=== PATIENT | female | born 1965 | race Caucasian/White ===

== ENCOUNTER 2017-03-29 07:30 | Emergency (ER) | payer OTHER ==
[2017-03-29 07:53] VITALS: BP 155/90
--- NOTE | 2017-03-29 08:11 | EDM.PDOC ---
ED HPI GENERAL MEDICAL PROBLEM - General Chief Complaint: Lower Extremity Injury/Pain Stated Complaint: RT HEEL PAIN Time Seen by Provider: 03/29/17 07:52 Source of Information: Reports: Patient History Limitations: Reports: No Limitations - History of Present Illness INITIAL COMMENTS - FREE TEXT/NARRATIVE: The patient presents with right heal pain. This started Thursday morning when she was getting out of bed. When she went to bed Thursday night, everything was fine. She had no pain and she did not do anything to strenuous. She did not walk more and she was not on her feet more then usual. She did not injure her foot or ankle in any way. She says she has had pain in her heal at times but never this bad. Onset: Sudden Duration: Day(s): (Yesterday) Location: Reports: Lower Extremity, Right (Heal) Quality: Reports: Sharp Severity: Moderate Improves with: Reports: Other (Staying off her feet) Worsens with: Reports: Other (Standing or walking) Associated Symptoms: Reports: No Other Symptoms Right Feet Pain Score (Numeric/FACES): 3 - Related Data Allergies Allergy/AdvReac Type Severity Reaction Status Date / Time No Known Allergies Allergy Verified 03/29/17 07:49 Home Meds: Home Meds Albuterol [Ventolin HFA] 2 puff INH Q4H PRN 07/25/13 [History] FLUoxetine [PROzac] 10 mg PO DAILY 07/25/13 [History] Hydrochlorothiazide 12.5 mg PO DAILY 07/26/13 [History] Multivitamin [Multivitamins] 1 each PO DAILY 07/26/13 [History] Budesonide/Formoterol Fumarate [Symbicort 80-4.5 Mcg Inhaler] 2 puff INH BID [History] Naproxen [Naprosyn] 500 mg PO Q12HR PRN #30 tab 03/29/17 [Rx] Past Medical History Cardiovascular History: Reports: Hypertension Respiratory History: Reports: Asthma, Sleep Apnea Social & Family History - Tobacco Use Smoking Status *Q: Never Smoker - Alcohol Use Days Per Week of Alcohol Use: 2 Number of Drinks Per Day: 2 Total Drinks Per Week: 4 - Recreational Drug Use Recreational Drug Use: No Review of Systems - Review of Systems Review Of Systems: See Below Constitutional: Reports: No Symptoms Eyes: Reports: No Symptoms Ears: Reports: No Symptoms Nose: Reports: No Symptoms Mouth/Throat: Reports: No Symptoms Respiratory: Reports: No Symptoms Cardiovascular: Reports: No Symptoms GI/Abdominal: Reports: No Symptoms Genitourinary: Reports: No Symptoms Musculoskeletal: Reports: Foot Pain (Right) ED EXAM, GENERAL - Physical Exam Exam: See Below Exam Limited By: No Limitations General Appearance: Alert, No Apparent Distress Ears: Normal External Exam Nose: Normal Inspection Head: Atraumatic, Normocephalic Neck: Normal Inspection Respiratory/Chest: No Respiratory Distress Extremities: Other (Pain upon palpation to the right heal. Good sensation and pulses distally.) Course - Vital Signs Last Recorded V/S: Last Vital Signs Temp 98.4 F 03/29/17 07:51 Pulse 70 03/29/17 07:51 Resp 18 03/29/17 07:51 BP 155/90 H 03/29/17 07:51 Pulse Ox 96 03/29/17 07:51 - Re-Assessments/Exams Free Text/Narrative Re-Assessment/Exam: 03/29/17 08:10 The patient has tensor fasciatis. I will have her get heal cups and stretch and I will give her a prescription for naprosyn. Departure - Departure Time of Disposition: 08:15 Disposition: Home, Self-Care 01 Condition: Good Clinical Impression: Plantar fasciitis of right foot - Discharge Information Prescriptions: Naproxen [Naprosyn] 500 mg PO Q12HR PRN #30 tab PRN Reason: Pain Referrals: Michelle Mayo MD [Primary Care Provider] - Dheeraj Moss II, DPM [Physician] - 1 Week Additional Instructions: Take the naprosyn 2 times per day for a week. Stretch your heal before you get out or bed and right when you get out. Run your heal over a can of soup when you are sitting. Buy some heal cups or similar device for your shows for the planter fascitis. Follow up with Dr Moss next week if you are not better. Use the crutches as needed.
== END 2017-03-29 08:35 | disposition home or self-care (01) ==
LOC: JD.ED 07:30
DX: M72.2 Plantar fascial fibromatosis (principal); I10 Essential (primary) hypertension; J45.909 Unspecified asthma, uncomplicated
CPT/HCPCS: 99283

== ENCOUNTER 2018-04-22 14:57 | Emergency (ER) | payer OTHER ==
[2018-04-22 15:13] VITALS: BP 156/88
[2018-04-22] MEDS ORDERED: Acetaminophen/HYDROcodone 325-5 MG Tab PO ONE (15:24)
--- NOTE | 2018-04-22 15:52 | EDM.PDOC ---
ED HPI GENERAL MEDICAL PROBLEM - General Chief Complaint: Lower Extremity Injury/Pain Stated Complaint: LT LEG INJURY Time Seen by Provider: 04/22/18 15:11 Source of Information: Reports: Patient, RN Notes Reviewed - History of Present Illness INITIAL COMMENTS - FREE TEXT/NARRATIVE: 53-year-old female slipped on the ice a short time ago. She states her right foot went out on her and in the process of falling twisted her left ankle. She has severe pain, especially the outer aspect left ankle. She states she "could not bear weight". No other pain or injury from the fall. Left Ankle Pain Score (Numeric/FACES): 9 - Related Data Allergies Allergy/AdvReac Type Severity Reaction Status Date / Time No Known Allergies Allergy Verified 04/22/18 15:13 Home Meds: Home Meds Albuterol [Ventolin HFA] 2 puff INH Q4H PRN 07/25/13 [History] FLUoxetine [PROzac] 10 mg PO DAILY 07/25/13 [History] Multivitamin [Multivitamins] 1 each PO DAILY 07/26/13 [History] hydroCHLOROthiazide [Hydrochlorothiazide] 12.5 mg PO DAILY 07/26/13 [History] Budesonide/Formoterol Fumarate [Symbicort 80-4.5 Mcg Inhaler] 2 puff INH BID [History] Naproxen [Naprosyn] 500 mg PO Q12HR PRN #30 tab 03/29/17 [Rx] Hydrocodone/Acetaminophen [Hockley 5-325 Tablet] 1 each PO Q6HR PRN #20 tablet 10/01 [Rx] Past Medical History Cardiovascular History: Reports: Hypertension Respiratory History: Reports: Asthma, Sleep Apnea Social & Family History - Tobacco Use Smoking Status *Q: Never Smoker - Caffeine Use Caffeine Use: Reports: Tea - Recreational Drug Use Recreational Drug Use: No Review of Systems - Review of Systems Review Of Systems: See Below Constitutional: Reports: No Symptoms Eyes: Reports: No Symptoms Ears: Reports: No Symptoms Nose: Reports: No Symptoms Mouth/Throat: Reports: No Symptoms Respiratory: Denies: Shortness of Breath Cardiovascular: Denies: Chest Pain GI/Abdominal: Denies: Abdominal Pain, Nausea, Vomiting Musculoskeletal: Reports: Joint Pain (Left ankle). Denies: Neck Pain Skin: Reports: No Symptoms Neurological: Reports: No Symptoms ED EXAM, GENERAL - Physical Exam Exam: See Below General Appearance: Alert, Mild Distress Head: Atraumatic Neck: Supple Respiratory/Chest: No Respiratory Distress Extremities: Joint Swelling (There is swelling of the lateral aspects left ankle , moderate diffuse tenderness lateral left ankle minimal tenderness medial ankle , foot nontender, no visible deformity.) Neurological: No Motor/Sensory Deficits Skin Exam: Warm, Dry, Normal Color ED TRAUMA EXTREMITY PROCEDURES - Splinting Left Lower Extremity Splint Site: Left short leg Splint Material: Fiberglass Splint Design: Posterior Applied & Form Fitted By: Provider Provider Post-Splint Application NV Check: NV Status Normal Complications: No Course - Vital Signs Last Recorded V/S: Last Vital Signs Temp 97.5 F 04/22/18 15:10 Pulse 72 04/22/18 15:10 Resp 18 04/22/18 15:10 BP 156/88 H 04/22/18 15:10 Pulse Ox 99 04/22/18 15:10 - Orders/Labs/Meds Orders: Active Orders 24 hr Category Date Time Status Ankle Min 3V Lt [CR] Stat Exams 04/22/18 15:24 Taken Meds: Medications Discontinued Medications Generic Name Dose Route Start Last Admin Trade Name Freq PRN Reason Stop Dose Admin Hydrocodone Bitart/Acetaminophen 1 tab 04/22/18 15:24 04/22/18 15:29 Hockley 325-5 Mg PO 04/22/18 15:25 1 tab ONETIME ONE Administration - Re-Assessments/Exams Free Text/Narrative Re-Assessment/Exam: 04/22/18 16:15 X-rays of the ankle do show fracture of the distal fibula right at the ankle joint, there is no visible medial or posterior fracture, medial joint space looks good, not widened. Departure - Departure Time of Disposition: 16:23 Disposition: Home, Self-Care 01 Condition: Fair Clinical Impression: Fibula fracture Qualifiers: Encounter type: initial encounter Fibula location: distal Fracture type: closed Fracture morphology: unspecified fracture morphology Laterality: left Qualified Code(s): S82.832A - Other fracture of upper and lower end of left fibula, initial encounter for closed fracture - Discharge Information Prescriptions: Hydrocodone/Acetaminophen [Hockley 5-325 Tablet] 1 each PO Q6HR PRN #20 tablet PRN Reason: Pain Instructions: Cast or Splint Care, Adult, [id number], Ankle Fracture, Easy-to -Read Referrals: Michelle Mayo MD [Primary Care Provider] - Forms: ED Department Discharge, ED Return to Work/School Form Additional Instructions: Elevate ankle and foot is much as possible, intermittent ice packs to help keep swelling down, Tylenol or ibuprofen as needed for discomfort or hydrocodone if needed for severe pain, did not take Tylenol and hydrocodone at the same time, follow-up with Dr. Lynn Orthopedist early next week, call tomorrow morning for appointment, [phone]. Use crutches, try keep nonweightbearing as much as possible. - My Orders Last 24 Hours: My Active Orders 04/22/18 15:24 Ankle Min 3V Lt [CR] Stat - Assessment/Plan Last 24 Hours: My Active Orders 04/22/18 15:24 Ankle Min 3V Lt [CR] Stat
--- NOTE | 2018-04-23 10:27 | CR ---
Left ankle: Four views of the left ankle were obtained. Comparison: No prior ankle study. Minimally displaced lateral malleolus fracture is identified. Slight cystic change is noted within the medial talar dome which is felt to be degenerative in etiology. Calcifications are noted within the distal Achilles tendon at its attachment to the calcaneus which is felt to be incidental. No additional fracture or other bony abnormality is seen. Soft tissue swelling is identified. Impression: 1. Slightly displaced lateral malleolus fracture. 2. Other incidental findings as noted above. Diagnostic code #3
== END 2018-04-22 17:10 | disposition home or self-care (01) ==
LOC: JD.ED 14:57
DX: S82.832A Other fracture of upper and lower end of left fibula, initial encounter for closed fracture (principal); I10 Essential (primary) hypertension; J45.909 Unspecified asthma, uncomplicated; Z79.899 Other long term (current) drug therapy; W00.0XXA Fall on same level due to ice and snow, initial encounter
CPT/HCPCS: 29515; 73610; 99283; A9270

== ENCOUNTER 2019-01-03 08:17 | Day surgery (SDC) | payer OTHER ==
[~2019-01-03 08:17] MED LIST: Albuterol 0.083% 2.5 MG/3 ML Neb Soln NEB SCH; Lactated Ringers 1,000 ML IV SCH; Lidocaine 1%/Sod Bicarbonate in NS 8.4% 1 ML Syringe IDERM PRN; Midazolam 1 MG/ML 2 ML SDV ONE; Propofol 200 MG/20 ML SDV ONE; Sodium Chloride 0.9% 10 ML Syringe FLUSH PRN
--- NOTE | 2019-01-03 08:51 | PCM.PREANE ---
Preanesthetic Assessment - Anesthesia/Transfusion/Family Hx Anesthesia History: Prior Anesthesia Without Reaction Family History of Anesthesia Reaction: No Transfusion History: No Prior Transfusion(s) - Review of Systems General: Other (morbid obesity with BMI 47+) Pulmonary: Other (asthma, preop neb given, SHERWIN with CPAP usage) Cardiovascular: Other (HTN) Gastrointestinal: Other (GERD, controlled diet) Neurological: No Symptoms Other: Reports: Depression - Physical Assessment NPO Status Date: 01/02/19 NPO Status Time: 23:55 Vital Signs: bp 156/86 hr 71 sats 97 Weight: 126.598 kg ASA Class: 3 Mental Status: Alert & Oriented x3 Airway Class: Mallampati = 2 Dentition: Reports: Normal Dentition, Partial (upper) Thyro-Mental Finger Breadths: 3 Mouth Opening Finger Breadths: 3 ROM/Head Extension: Full Lungs: Clear to Auscultation, Normal Respiratory Effort Cardiovascular: Regular Rate, Regular Rhythm - Allergies Allergies/Adverse Reactions: Allergies Allergy/AdvReac Type Severity Reaction Status Date / Time No Known Allergies Allergy Verified 12/31/18 12:05 - Blood Blood Available: No Product(s) Available: None - Anesthesia Plan Pre-Op Medication Ordered: None - Acknowledgements Anesthesia Type Planned: MAC Pt an Appropriate Candidate for the Planned Anesthesia: Yes Alternatives and Risks of Anesthesia Discussed w Pt/Guardian: Yes Pt/Guardian Understands and Agrees with Anesthesia Plan: Yes PreAnesthesia Questionnaire HEENT History: Reports: Impaired Vision, Other (See Below) Other HEENT History: Partial upper denture Cardiovascular History: Reports: High Cholesterol, Hypertension Respiratory History: Reports: Asthma, Sleep Apnea Other Respiratory History: SHERWIN, Uses CPAP. asthma, on meds Gastrointestinal History: Reports: Other (See Below) Other Gastrointestinal History: Heartburn Genitourinary History: Reports: None Musculoskeletal History: Reports: Other (See Below) Other Musculoskeletal History: Left ankle fracture, left foot fracture Neurological History: Reports: Neuropathy, Peripheral Psychiatric History: Reports: Depression Endocrine/Metabolic History: Reports: None Hematologic History: Reports: None Immunologic History: Reports: None Oncologic (Cancer) History: Reports: None Dermatologic History: Reports: None - Past Surgical History Head Surgeries/Procedures: Reports: None Cardiovascular Surgical History: Reports: None Respiratory Surgical History: Reports: None GI Surgical History: Reports: Colonoscopy Female Surgical History: Reports: None Endocrine Surgical History: Reports: None Neurological Surgical History: Reports: None Musculoskeletal Surgical History: Reports: None Oncologic Surgical History: Reports: None Dermatological Surgical History: Reports: None - SUBSTANCE USE Smoking Status *Q: Never Smoker Tobacco Use Within Last Twelve Months: No Second Hand Smoke Exposure: No Recreational Drug Use History: No - HOME MEDS Home Medications: Home Meds Albuterol [Ventolin HFA] 2 puff INH Q4H PRN 07/25/13 [History] Multivitamin [Multivitamins] 1 each PO DAILY 07/26/13 [History] hydroCHLOROthiazide [Hydrochlorothiazide] 12.5 mg PO DAILY 07/26/13 [History] Budesonide/Formoterol Fumarate [Symbicort 80-4.5 Mcg Inhaler] 2 puff INH BID [History] FLUoxetine HCl [Prozac] 20 mg PO DAILY 12/31/18 [History] Gabapentin [Neurontin] 600 mg PO BID 12/31/18 [History] Loratadine [Claritin] 10 mg PO DAILY PRN 12/31/18 [History] amLODIPine [Norvasc] 5 mg PO DAILY 12/31/18 [History] atorvaSTATin [Lipitor] 5 mg PO BEDTIME 12/31/18 [History] - CURRENT (IN HOUSE) MEDS Current Meds: Current Medications Albuterol (Proventil Neb Soln) 2.5 mg NEB ONETIME LINK Stop: 01/03/19 16:00 Lactated Ringer's (Ringers, Lactated) 1,000 mls @ 125 mls/hr IV ASDIRECTED LINK Stop: 01/03/19 23:00 Lidocaine/Sodium Bicarbonate (Buffered Lidocaine 1% In Ns 8.4%) 0.25 ml IDERM ONETIME PRN PRN Reason: Prior to IV Start Stop: 01/03/19 18:00 Sodium Chloride (Saline Flush) 10 ml FLUSH ASDIRECTED PRN PRN Reason: Keep Vein Open Stop: 01/03/19 18:00 Discontinued Medications Midazolam HCl (Versed 1 Mg/Ml) Confirm Administered Dose 2 mg .ROUTE .STK-MED ONE Stop: 01/03/19 07:49 Propofol (Diprivan 20 Ml) Confirm Administered Dose 600 mg .ROUTE .STK-MED ONE Stop: 01/03/19 07:49
[2019-01-03] MEDS ORDERED: fentaNYL 100 MCG/2 ML SDV ONE (09:50)
[2019-01-03] MEDS ORDERED: Midazolam 1 MG/ML 2 ML SDV ONE (09:59)
--- NOTE | 2019-01-03 10:30 | PCM48HPAN ---
Post Anesthesia Note - EVALUATION WITHIN 48HRS OF ANESTHETIC Vital Signs in Normal Range: Yes Patient Participated in Evaluation: Yes Respiratory Function Stable: Yes Airway Patent: Yes Cardiovascular Function Stable: Yes Hydration Status Stable: Yes Pain Control Satisfactory: Yes Nausea and Vomiting Control Satisfactory: Yes Mental Status Recovered: Yes Vital Signs: Last Vital Signs Temp 36.8 C 01/03/19 08:40 Pulse 71 01/03/19 08:40 Resp 16 01/03/19 08:40 BP 150/86 H 01/03/19 08:40 Pulse Ox 96 01/03/19 08:58
[2019-01-03 11:48] VITALS: PULSE 65
[2019-01-03 11:49] VITALS: BP 142/86
--- NOTE | 2019-01-03 11:55 | OR ---
DATE OF OPERATION: 01/03/2019 SURGEON: Prateek Bruce MD PREOPERATIVE DIAGNOSIS: Screening for high risk of colon cancer. POSTOPERATIVE DIAGNOSIS: Normal colonoscopy with diverticulosis. OPERATION PERFORMED: Colonoscopy. FINDINGS: Scattered diverticula in the transverse, descending, and sigmoid colon. COMPLICATIONS: None. INDICATION AND CONSENT: Ms. Galan is a 53-year-old female with family history of colon cancer in her father in the 60s. The patient had first colonoscopy 5 years ago, which was normal. Due to elevated risk for colon cancer given family history, the patient was recommended to repeat colonoscopy in 5 years. The patient presented to the clinic. She was otherwise doing fine, except she had recent episodes of melena, that was worrisome. Due to this, a colonoscopy, which the patient was due for, was recommended. The patient agreed to proceed with procedure. Discussion about the risks, benefits, and options was had, and the patient understood and agreed to proceed with the procedure and informed consent was obtained. DESCRIPTION OF PROCEDURE: The patient was taken to the procedure room and placed in the left lateral decubitus position. Following induction of monitored anesthesia, perianal exam was performed. There were no abnormalities found in this exam. The scope was advanced from the anus all the way to the cecum. The appendiceal orifice and cecum where photographed. Then, the scope was carefully and slowly withdrawn from the cecum, taking a good look at the colonic mucosa all the way throughout. There was a large mouth diverticulum scattered from the transverse colon, descending and sigmoid colon. The rest of the exam was otherwise normal. There were no polyps in this exam. There were also no hemorrhoids that were significant. On retroflexion, the upper anal canal was normal. As mentioned above, there were no significant hemorrhoids. The scope was withdrawn, and the procedure concluded. The patient tolerated the procedure well. The patient will go home. I recommended to the patient to repeat the colonoscopy in 5 years for another screening. ANESTHESIA: ESTIMATED BLOOD LOSS: MMODAL /[id number] MTDD
== END 2019-01-03 11:29 | disposition home or self-care (01) ==
LOC: JD.SDS 08:17
PROVIDERS: ATTEND Surgery
DX: K57.31 Diverticulosis of large intestine without perforation or abscess with bleeding (principal); I10 Essential (primary) hypertension; E78.00 Pure hypercholesterolemia, unspecified; J45.40 Moderate persistent asthma, uncomplicated; K21.9 Gastro-esophageal reflux disease without esophagitis; G47.33 Obstructive sleep apnea (adult) (pediatric); G60.9 Hereditary and idiopathic neuropathy, unspecified; Z80.0 Family history of malignant neoplasm of digestive organs; Z79.899 Other long term (current) drug therapy
CPT/HCPCS: 45378; 94640; J2250; J2704; J3010; J7120; 00812

== ENCOUNTER 2024-08-24 09:06 | Day surgery (SDC) | payer OTHER ==
[~2024-08-24 09:06] MED LIST changes: -Albuterol 0.083% 2.5 MG/3 ML Neb Soln NEB SCH; -Lactated Ringers 1,000 ML IV SCH; -Lidocaine 1%/Sod Bicarbonate in NS 8.4% 1 ML Syringe IDERM PRN; -Midazolam 1 MG/ML 2 ML SDV ONE; -Propofol 200 MG/20 ML SDV ONE
[2024-08-24] MEDS ORDERED: Sodium Chloride 0.9% 100 ML IV ONE (09:07)
[2024-08-24] MEDS: Lactated Ringers 1,000 ML IV SCH (10:00)
[2024-08-24] MEDS ORDERED: propofoL 500 MG/50 ML 50 ML ONE (10:19)
[2024-08-24] MEDS ORDERED: Midazolam 1 MG/ML 2 ML SDV ONE (10:19)
[2024-08-24] MEDS ORDERED: Lidocaine 2% 5 ML SDV ONE (10:20)
[2024-08-24] MEDS ORDERED: Ketamine 200 MG/20 ML MDV ONE (10:47)
[2024-08-24] MEDS ORDERED: dexmedeTOMIDine HCl 200 MCG/2 ML SDV ONE (11:02)
[2024-08-24] MEDS ORDERED: Phenylephrine 1% 10 MG/ML SDV ONE (11:24)
[2024-08-24] MEDS: Midazolam 1 MG/ML 2 ML SDV IVPUSH PRN (12:53)
[2024-08-24] MEDS: Albuterol 0.083% 2.5 MG/3 ML Neb Soln NEB ONE (13:33)
[2024-08-24] MEDS: Sodium Chloride 0.9% 10 ML Syringe FLUSH SCH (18:00)
[2024-08-24] MEDS: Gabapentin 600 MG Tab PO SCH (19:56)
[2024-08-24 20:36] VITALS: BP 121/72; PULSE 98
[2024-08-25] MEDS ORDERED: Gabapentin 300 MG Cap PO SCH (09:00)
[2024-08-25] MEDS: Torsemide 20 MG Tab PO SCH (09:44)
[2024-08-25] MEDS: LORazepam 2 MG/ML SDV ONE (14:54)
[2024-08-25] MEDS: Albuterol/Ipratropium 3.0-0.5 MG/3 ML Neb Soln NEB ONE (14:55)
== END 2024-08-25 15:58 | disposition home or self-care (01) ==
LOC: JD.SDS 09:06
PROVIDERS: ATTEND Surgery
DX: Z12.11 Encounter for screening for malignant neoplasm of colon (principal); Z80.0 Family history of malignant neoplasm of digestive organs; K64.4 Residual hemorrhoidal skin tags; J45.30 Mild persistent asthma, uncomplicated; I11.0 Hypertensive heart disease with heart failure; I50.31 Acute diastolic (congestive) heart failure; Z79.899 Other long term (current) drug therapy
CPT/HCPCS: 00811; 71045; 71045-26; 71046; 71046-26; 93005; 93010; 94640; 94660; A9270-GY; J2003; J2250; J2371; J2704; J3490; J7120